=== PATIENT | male | born 1965 | race Caucasian/White ===

== ENCOUNTER → 2019-12-06 11:46 | Outpatient (BNVA) | payer MEDICARE, MEDICAID, SELFPAY | PROVIDERS: Family Provider Nurse Practitioner; PCP Nurse Practitioner; Visit Provider Nurse Practitioner Family | DX: A49.9 Bacterial infection, unspecified (principal); N39.0 Urinary tract infection, site not specified | CPT/HCPCS: 80053; 81001; 87077; 87086; 87186 ==

== ENCOUNTER → 2019-12-28 11:56 | Outpatient (BNVA) | payer MEDICARE, MEDICAID, SELFPAY | PROVIDERS: Family Provider Nurse Practitioner; PCP Nurse Practitioner; Visit Provider Nurse Practitioner Family | DX: N39.0 Urinary tract infection, site not specified (principal) | CPT/HCPCS: 80053; 80061; 81003; 82306; 82607; 83036; 83735; 84443; 85025 ==

== ENCOUNTER → 2020-05-10 11:00 | Outpatient (BNVA) | payer MEDICARE, MEDICAID, SELFPAY | PROVIDERS: Family Provider Nurse Practitioner; PCP Nurse Practitioner Family; Visit Provider Nurse Practitioner Family | DX: N39.0 Urinary tract infection, site not specified (principal); R31.9 Hematuria, unspecified | CPT/HCPCS: 80053; 81003; 87077; 87086; 87186 ==

== ENCOUNTER → 2020-05-31 11:40 | Outpatient (BNVA) | payer MEDICARE, MEDICAID, SELFPAY | PROVIDERS: Family Provider Nurse Practitioner; PCP Nurse Practitioner Family | DX: N39.0 Urinary tract infection, site not specified (principal); R31.9 Hematuria, unspecified | CPT/HCPCS: 80053; 81003; 87077; 87086; 87184; 87186 ==

== ENCOUNTER → 2020-06-29 11:49 | Outpatient (BNVA) | payer MEDICARE, MEDICAID, SELFPAY | PROVIDERS: Family Provider Nurse Practitioner; PCP Nurse Practitioner Family; Visit Provider Nurse Practitioner Family | DX: E34.9 Endocrine disorder, unspecified (principal); G62.9 Polyneuropathy, unspecified | CPT/HCPCS: 84402; 84403 ==

== ENCOUNTER 2020-07-12 06:00 | Outpatient (RCR) | payer MEDICARE, MEDICAID, SELFPAY | END 2020-08-06 23:59 | disposition home or self-care (01) | LOC: WPT 06:00 | PROVIDERS: Family Provider Nurse Practitioner; PCP Family Medicine; Referring Provider Family Medicine; Visit Provider Family Medicine | DX: M54.12 Radiculopathy, cervical region (principal); M75.102 Unspecified rotator cuff tear or rupture of left shoulder, not specified as traumatic | CPT/HCPCS: 97110; 97112; 97161 ==

== ENCOUNTER → 2020-07-16 10:17 | Outpatient (BNVA) | payer MEDICARE, MEDICAID, SELFPAY | PROVIDERS: Family Provider Nurse Practitioner; PCP Family Medicine; Referring Provider Family Medicine; Visit Provider Anesthesiology Pain Medicine | DX: G82.20 Paraplegia, unspecified (principal); M54.12 Radiculopathy, cervical region; M19.019 Primary osteoarthritis, unspecified shoulder; M75.102 Unspecified rotator cuff tear or rupture of left shoulder, not specified as traumatic; Z79.891 Long term (current) use of opiate analgesic | CPT/HCPCS: 99204 ==

== ENCOUNTER 2020-08-07 06:00 | Outpatient (RCR) | payer MEDICARE, MEDICAID, SELFPAY | END 2020-09-06 23:59 | disposition home or self-care (01) | LOC: WPT 06:00 | PROVIDERS: PCP Family Medicine; Referring Provider Family Medicine; Visit Provider Family Medicine | DX: M54.12 Radiculopathy, cervical region (principal); M75.102 Unspecified rotator cuff tear or rupture of left shoulder, not specified as traumatic | CPT/HCPCS: 97110 ==

== ENCOUNTER 2020-08-08 13:01 | Outpatient (CLI) | payer MEDICARE, MEDICAID, SELFPAY ==
--- NOTE | 2020-08-08 13:18 | XR_ITS ---
WS: [id number] Lateral views of cervical spine in the flexion, extension and neutral positions. 08/08/2020 Clinical Data: M54.12 - Radiculopathy, cervical region Comparison: None. Findings: Degenerative disc narrowing is present at C3-C4 and C5-C6. 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 The spinous process at C4 may be displaced from an old fracture or a congenital abnormality. No preverte bral soft tissue swelling is noted. No compression fractures are seen. On flexion and extension there is no subluxation. However on flexion there is limitation of motion because of the C2-C3 fusion. XR/XR cervical spine fl/ex [id number] Impression: 1. Limitation of motion on flexion. 2. Negative for subluxation on flexion or extension. 3. 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 4. Degenerative disc narrowing at C3-C4 and C6 5-C6..
--- NOTE | 2020-08-08 13:18 | XR_ITS ---
WS: [id number] Left shoulder, 2 views, 08/08/2020 Clinical Data: M19.019 - Primary osteoarthritis, unspecified shoulder Comparison: None. Findings: No fractures or dislocations are seen. The AC joint is normal. The adjacent left clavicle, left scapu la and ribs are normal. The soft tissues are unremarkable. XR/XR shoulder LT min 2V* [id number] Impression: Negative left shoulder.
== END 2020-08-08 13:02 | disposition home or self-care (01) ==
LOC: RADWPI 13:06
PROVIDERS: PCP Family Medicine; Visit Provider Anesthesiology Pain Medicine
DX: M54.12 Radiculopathy, cervical region (principal); M43.22 Fusion of spine, cervical region; M19.012 Primary osteoarthritis, left shoulder
CPT/HCPCS: 72040; 73030

== ENCOUNTER → 2020-08-16 10:14 | Outpatient (BNVA) | payer MEDICARE, MEDICAID, SELFPAY | PROVIDERS: Family Provider Nurse Practitioner; PCP Family Medicine; Visit Provider Anesthesiology Pain Medicine | DX: M54.2 Cervicalgia (principal); M75.102 Unspecified rotator cuff tear or rupture of left shoulder, not specified as traumatic; G82.20 Paraplegia, unspecified; M51.17 Intervertebral disc disorders with radiculopathy, lumbosacral region | CPT/HCPCS: 99214 ==

== ENCOUNTER → 2020-08-28 09:40 | Outpatient (BNVA) | payer MEDICARE, MEDICAID, SELFPAY | PROVIDERS: Family Provider Nurse Practitioner; PCP Family Medicine; Visit Provider Nurse Practitioner Family | DX: N39.0 Urinary tract infection, site not specified (principal); R31.9 Hematuria, unspecified | CPT/HCPCS: 81003; 87086 ==

== ENCOUNTER 2020-08-29 09:06 | Outpatient (CLI) | payer MEDICARE, MEDICAID, SELFPAY ==
--- NOTE | 2020-08-29 09:10 | MR_ITS ---
WS: [id number] MRI CERVICAL SPINE without contrast. HISTORY: M54.12 - Radiculopathy, cervical region prior history of trauma. COMPARISON: None available. Severe degenerative changes throughout the cervical spine. 2 to 3 mm retrolisthesis of C3 and C4. C7 anterolisthesis by 4 mm. No marrow edema or acute fractures are identified. Severe disc space narrowi ng and desiccation at C4-5. Otherwise moderate degenerative disc disease. Significant hypertrophic os teophyte formation at bilaterally. There is signal abnormality within the cervical cord. There are cystic changes in the cervical cord a t the C7 and T1 levels. The largest at T1 extends over a length of 12 mm. This may be from prior trau ma. There is not a significant stenosis at this level. There does appear to be mild atrophy of the co rd. Demyelinating plaque also may be within the differential. No prior studies for comparison. Near complete ankylosis involving the C2 and C3 vertebral bodies. On the prior radiograph there was f usion of the facet joints. C2-C3: Small disc space due to fusion. C3-C4: Marked osteophytic ridging with annular disc bulging. Mild contact on the ventral thecal sac w ith mild central stenosis. Moderate RIGHT foraminal stenosis due to disc osteophyte. C4-C5: Diffuse annular disc bulge. Mild central and bilateral foraminal stenosis. C5-C6: Diffuse annular disc bulging with mild bilateral foraminal stenosis due to osteophytes and dis c disease. C6-C7: Mild annular disc bulge and osteophytosis. Mild central and RIGHT foraminal narrowing. C7-T1: No significant stenosis. Paraspinal soft tissue are normal. MR/MR cervical spin wo con* [id number] IMPRESSION: 1. Severe spondylitic changes in the cervical spine. 2. Partial fusion of the C2-C3 vertebral bodies in the facet joints. 3. Moderate RIGHT foraminal stenosis and mild central stenosis at C3-4 due to disc osteophyte disease. 4. Mild central and bilateral foraminal stenosis at C4-5. 5. Cystic degeneration in the cervical cord at the C7-T1 levels. There is also mild atrophy of the cord at this level. Patient did provide a history of prior cervical spine injury. This may be cystic degeneration due to myelomalacia and cord trauma. Not likely due to stenosis as there is not significant stenosis a t this level. Demyelinating lesions also within the differential.
== END 2020-08-29 09:07 | disposition home or self-care (01) ==
LOC: RADSHAW 09:09
PROVIDERS: PCP Family Medicine; Visit Provider Anesthesiology Pain Medicine
DX: M54.12 Radiculopathy, cervical region (principal); M43.22 Fusion of spine, cervical region; M48.02 Spinal stenosis, cervical region; M25.78 Osteophyte, vertebrae
CPT/HCPCS: 72141

== ENCOUNTER → 2020-09-12 11:13 | Outpatient (BNVA) | payer MEDICARE, MEDICAID, SELFPAY | PROVIDERS: PCP Family Medicine; Visit Provider Nurse Practitioner Family | DX: N39.0 Urinary tract infection, site not specified (principal) | CPT/HCPCS: 81003; 87077; 87086; 87184 ==

== ENCOUNTER → 2020-10-02 00:01 | Outpatient (BNVA) | payer MEDICARE, MEDICAID, SELFPAY | PROVIDERS: PCP Family Medicine; Visit Provider Nurse Practitioner Family | DX: N39.0 Urinary tract infection, site not specified (principal) | CPT/HCPCS: 81003; 87077; 87086; 87184 ==

== ENCOUNTER → 2020-12-13 10:55 | Outpatient (BNVA) | payer MEDICARE, MEDICAID, SELFPAY | PROVIDERS: PCP Family Medicine; Visit Provider Nurse Practitioner Family | DX: E34.9 Endocrine disorder, unspecified (principal) | CPT/HCPCS: 84402; 84403; 85025 ==

== ENCOUNTER 2021-03-25 11:59 | Outpatient (CLI) | payer MEDICARE, MEDICAID, SELFPAY | END 2021-03-25 12:00 | disposition home or self-care (01) | LOC: LAB 05-28 12:43 | PROVIDERS: PCP Nurse Practitioner Family; Visit Provider Nurse Practitioner Family | DX: N39.0 Urinary tract infection, site not specified (principal); R31.9 Hematuria, unspecified | CPT/HCPCS: 81003; 87077; 87086; 87184 ==

== ENCOUNTER 2021-04-10 14:20 | Outpatient (CLI) | payer MEDICARE, MEDICAID, SELFPAY ==
--- NOTE | 2021-04-10 14:23 | MR_ITS ---
WS: [id number] MRI LEFT SHOULDER HISTORY: M75.102 - Unspecified rotator cuff tear or rupture COMPARISON: Shoulder radiograph 08/08/2020 TECHNIQUE: Multiplanar sequences of the shoulder joint are submitted. Moderate AC joint hypertrophy with encroachment upon the supraspinatus muscle and tendon. There is in crease fluid signal along the AC ligament. Bone and soft tissue hypertrophy and thickening of the cap fabi. Moderate amount of increased fluid in subacromial and subdeltoid bursa. Humeral head is high ri ding abutting the undersurface of the distal acromion. No os acromion. Small caliber but intact bicep s tendon at the bicipital groove. Complete tear with retraction of the supraspinatus and infraspinatus tendons. Tendons are retracted t o the medial humeral head. There is a large amount of fluid extending along the infraspinatus tendon. There is also edema within the infraspinatus and supraspinatus muscles. Moderate atrophy of the supr aspinatus and infraspinatus muscles. Subscapularis recess distention with fluid. Tendinopathy in the subscapularis tendon but the tendon is intact. Narrowing of the glenohumeral joint. Intrasubstance degeneration involving the labrum. Partial tear a long the superior labrum. No full-thickness tear of the labrum. MR/MR shoulder LT wo con* [id number] IMPRESSION: 1. Complete tears with retraction to the medial humeral head of the infraspina tus and supraspinatus tendons with muscle edema and atrophy. 2. High riding humeral head abuts the undersurface of the acromion. 3. Moderate AC joint osteoarthritic changes with mild synovitis. 4. Increase fluid in subacromial and subdeltoid bursa and subscapularis recess . 5. Partial tear superior labrum. 6. Moderate subscapularis tendinopathy.
== END 2021-04-10 14:21 | disposition home or self-care (01) ==
LOC: RADSHAW 14:22
PROVIDERS: PCP Nurse Practitioner Family; Visit Provider Nurse Practitioner Family
DX: M75.122 Complete rotator cuff tear or rupture of left shoulder, not specified as traumatic (principal); M65.9 Synovitis and tenosynovitis, unspecified
CPT/HCPCS: 73221; 81003; 87077; 87086; 87184

== ENCOUNTER → 2021-05-27 11:47 | Outpatient (BNVA) | payer MEDICARE, MEDICAID, SELFPAY | PROVIDERS: PCP Nurse Practitioner Family; Visit Provider Nurse Practitioner Family | DX: N39.0 Urinary tract infection, site not specified (principal); R31.9 Hematuria, unspecified | CPT/HCPCS: 81003; 87077; 87086; 87184 ==

== ENCOUNTER → 2021-06-11 11:00 | Outpatient (BNVA) | payer MEDICARE, MEDICAID, SELFPAY | PROVIDERS: PCP Nurse Practitioner Family; Visit Provider Nurse Practitioner Family | DX: N39.0 Urinary tract infection, site not specified (principal) | CPT/HCPCS: 81003; 87077; 87086; 87184 ==

== ENCOUNTER → 2021-08-12 11:33 | Outpatient (BNVA) | payer MEDICARE, MEDICAID, SELFPAY | PROVIDERS: PCP Nurse Practitioner Family; Visit Provider Nurse Practitioner Family | DX: N39.0 Urinary tract infection, site not specified (principal); T83.510S Infection and inflammatory reaction due to cystostomy catheter, sequela | CPT/HCPCS: 81003; 87077; 87086; 87184 ==

== ENCOUNTER → 2021-08-22 10:19 | Outpatient (BNVA) | payer MEDICARE, MEDICAID, SELFPAY | PROVIDERS: PCP Nurse Practitioner Family; Visit Provider Nurse Practitioner Family | DX: E55.9 Vitamin D deficiency, unspecified (principal); E34.9 Endocrine disorder, unspecified; I10 Essential (primary) hypertension; E78.2 Mixed hyperlipidemia; N39.0 Urinary tract infection, site not specified; Z79.899 Other long term (current) drug therapy | CPT/HCPCS: 80053; 80061; 82306; 83036; 84402; 84403; 84443; 85025; G0103 ==

== ENCOUNTER → 2021-08-26 09:46 | Outpatient (BNVA) | payer MEDICARE, MEDICAID, SELFPAY | PROVIDERS: PCP Nurse Practitioner Family; Visit Provider Nurse Practitioner Family | DX: N39.0 Urinary tract infection, site not specified (principal) | CPT/HCPCS: 81003; 87077; 87086; 87184 ==

== ENCOUNTER → 2021-09-10 11:56 | Outpatient (BNVA) | payer MEDICARE, MEDICAID, SELFPAY | PROVIDERS: PCP Nurse Practitioner Family; Visit Provider Nurse Practitioner Family | DX: T83.510S Infection and inflammatory reaction due to cystostomy catheter, sequela (principal); N39.0 Urinary tract infection, site not specified | CPT/HCPCS: 81003 ==

== ENCOUNTER → 2021-12-24 11:27 | Outpatient (BNVA) | payer MEDICARE, MEDICAID, SELFPAY | PROVIDERS: PCP Nurse Practitioner Family; Visit Provider Nurse Practitioner | DX: R20.2 Paresthesia of skin (principal); N39.0 Urinary tract infection, site not specified; T83.511A Infection and inflammatory reaction due to indwelling urethral catheter, initial encounter | CPT/HCPCS: 81000 ==

== ENCOUNTER → 2022-01-30 15:55 | Outpatient (BNVA) | payer MEDICARE, MEDICAID, SELFPAY | PROVIDERS: PCP Nurse Practitioner Family; Visit Provider Nurse Practitioner | DX: T83.511A Infection and inflammatory reaction due to indwelling urethral catheter, initial encounter (principal); N39.0 Urinary tract infection, site not specified | CPT/HCPCS: 81000 ==

== ENCOUNTER → 2022-02-14 10:38 | Outpatient (BNVA) | payer MEDICARE, MEDICAID, SELFPAY | PROVIDERS: PCP Nurse Practitioner Family; Visit Provider Nurse Practitioner | DX: N39.0 Urinary tract infection, site not specified (principal) | CPT/HCPCS: 81000 ==

== ENCOUNTER → 2022-04-25 14:24 | Outpatient (BNVA) | payer MEDICARE, MEDICAID, SELFPAY | PROVIDERS: PCP Nurse Practitioner Family; Visit Provider Nurse Practitioner | DX: N39.0 Urinary tract infection, site not specified (principal) | CPT/HCPCS: 81000 ==

== ENCOUNTER 2022-07-29 14:07 | Outpatient (RCR) | payer MEDICARE, MEDICAID, SELFPAY | END 2022-08-06 23:59 | disposition home or self-care (01) | LOC: WPT 14:07 | PROVIDERS: PCP Nurse Practitioner Family; Visit Provider Family Medicine | DX: S46.011D Strain of muscle(s) and tendon(s) of the rotator cuff of right shoulder, subsequent encounter (principal); S46.012D Strain of muscle(s) and tendon(s) of the rotator cuff of left shoulder, subsequent encounter; X58.XXXA Exposure to other specified factors, initial encounter; G82.20 Paraplegia, unspecified | CPT/HCPCS: 97110; 97112; 97163; 97530 ==

== ENCOUNTER 2022-08-07 06:00 | Outpatient (RCR) | payer MEDICARE, MEDICAID, SELFPAY | END 2022-09-06 23:59 | disposition home or self-care (01) | LOC: WPT 06:00 | PROVIDERS: PCP Nurse Practitioner Family; Visit Provider Family Medicine | DX: G82.20 Paraplegia, unspecified (principal); S46.011D Strain of muscle(s) and tendon(s) of the rotator cuff of right shoulder, subsequent encounter; X58.XXXD Exposure to other specified factors, subsequent encounter; Z99.3 Dependence on wheelchair | CPT/HCPCS: 97110; 97112; 97530 ==

== ENCOUNTER 2022-08-26 10:15 | Emergency (ER) | payer MEDICARE, MEDICAID, SELFPAY ==
[2022-08-26 10:36] VITALS: BP 130/61; PULSE 64; RESP 14; TEMP 36.6; O2SAT 100
--- NOTE | 2022-08-26 10:39 | ED_ITS ---
HPI - Wound/Laceration General: Chief Complaint: Wound/Laceration Stated Complaint: wound on right hip Time Seen by Provider: 08/26/22 10:27 Source: patient Mode of arrival: ambulatory History of Present Illness: 57-year-old male who presents emergency room with complaint of ulceration on his right buttock. Its at the skin fold of the right gluteus. It has been draining a little bit. He has a previous spot spinal cord injury that is left him paraplegic. Denies any fever sweats or chills. Onset (ago): week(s) Location: other (Right buttock) Place: home Associated symptoms: Denies chills, fever(s), foreign body sensation, inability to move, nausea, numbness, pain, syncope or vomiting Treatments prior to arrival: bandage Review of Systems Const: Denies: fever(s) or chills ENMT: Denies: throat pain, ear or mastoid pain, nasal discharge or nasal congestion Card: Denies: chest pain, palpitations, irregular heart rhythm or syncope Resp: Denies: dyspnea, productive cough or non-productive cough GI: Denies: abdominal pain, nausea or vomiting : Denies: flank pain, dysuria, urinary frequency or urinary urgency Skin/Breast: Denies: rash or pruritus PFSH ED PFSH: Medical History Autonomic dysfunction Cardiac arrhythmia DDD (degenerative disc disease), cervical Essential hypertension H/O spinal cord injury Hyperlipidemia Hypotension Hypotestosteronemia Insomnia Medication management Neurogenic bladder Neuropathy Osteoporosis Paraplegia at T4 level Positive colorectal cancer screening using Cologuard test Recurrent UTI Family History Other Cancer Social History Smoking and tobacco status: never smoked Second hand smoke exposure: No Alcohol intake: never Lives independently: Yes Marital status: Single Current occupational status: disabled 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 History of recent travel: No Physical Exam Const: COMMON NORMALS: no acute distress GENERAL APPEARANCE: cooperative and comfortable ORIENTATION/CONSCIOUSNESS: Yes awake, Yes oriented to person, Yes oriented to place and Yes oriented to time HENMT: COMMON NORMALS: normocephalic, atraumatic and hearing grossly normal bilaterally HEAD & SCALP: normocephalic and atraumatic Resp: COMMON NORMALS: normal respiratory effort, No retractions, No use of accessory muscles and clear to auscultation bilaterally AUSCULTATION: clear to auscultation bilaterally Cardio: COMMON NORMALS: regular rate, regular rhythm and No murmurs present (Cardio) RATE: regular rate RHYTHM: regular rhythm GI: COMMON NORMALS: Soft to palpation and No hepatosplenomegaly present AUSCULTATION: Yes normoactive bowel sounds PALPATION: Yes Soft to palpation, No Tenderness to palpation present (GI), No Guarding due to palpation present (GI) and Yes No hepatosplenomegaly present Back/Pelvis: OTHER: Tunneled pressure ulcer in the right buttock at the gluteal fold. No active drainage minimal erythema. Wet mucous ulcer at its base. Approximately an 2 inches at the opening. Tunnels inferiorly. Wound not probed no exposed bone visualized. Neuro: SENSORIUM/ORIENTATION: Yes oriented to person, Yes oriented to place and Yes oriented to time Skin: COMMON NORMALS: no rashes or lesions noted GENERAL SKIN EXAM: no rashes or lesions noted Course Vital Signs: Vital signs: Vital Signs Temperature 97.9 F 08/26/22 10:36 Pulse Rate 54 L 08/26/22 11:35 Respiratory Rate 14 08/26/22 10:36 Blood Pressure 126/73 08/26/22 11:35 Pulse Oximetry 99 08/26/22 11:35 Oxygen Delivery Me thod 08/26/22 11:35 MDM - Wound/Laceration Medical Decision Making Tunnel decub ulcer approximately 2 inches in diameter. No signs of infection or drainage at this time. Would recommend that he follow-up with the wound care clinic we will do wet-to-dry at bandages until he is seen there. Discussed with patient expressed understanding. Medical Records I reviewed the patient's medical records. Lab Data I reviewed the patient's lab results. 08/26/22 11:04 08/26/22 11:04 Laboratory Results WBC 12.0 10^3/uL (4.0-10.0) H 08/26/22 11:04 RBC 3.84 10^6/uL (4.1-5.3) L 08/26/22 11:04 Hgb 12.1 g/dL (11.7-16.6) 08/26/22 11:04 Hct 36.7 % (42.0-52.0) L 08/26/22 11:04 MCV 95.6 fl (80-94) H 08/26/22 11:04 MCH 31.5 pg (28.0-34.0) 08/26/22 11:04 MCHC 33.0 g/dL (30.0-36.0) 08/26/22 11:04 RDW 13.0 % (12.1-15.1) 08/26/22 11:04 Plt Count 266 10^3/cmm (130-400) 08/26/22 11:04 MPV 8.7 fL (7.4-10.4) 08/26/22 11:04 Neut % (Auto) 80.0 % 08/26/22 11:04 Lymph % (Auto) 7.5 % 08/26/22 11:04 [place] % (Auto) 10.6 % 08/26/22 11:04 Eos % (Auto) 0.8 % 08/26/22 11:04 Baso % (Auto) 0.3 % 08/26/22 11:04 Neut # (Auto) 9.61 10^3/uL (1.8-7.7) H 08/26/22 11:04 Lymph # (Auto) 0.9 10^3/uL (0.8-4.8) 08/26/22 11:04 [place] # (Auto) 1.3 10^3/uL (0.2-0.9) H 08/26/22 11:04 Eos # (Auto) 0.1 10^3/uL (0.0-0.8) 08/26/22 11:04 Baso # (Auto) 0.0 10^3/uL (0.0-0.1) 08/26/22 11:04 Nucleated RBC % (auto) 0 % 08/26/22 11:04 Nucleated RBCs # 0.0 /100WBC 08/26/22 11:04 Sodium 139 mmol/L (136-145) 08/26/22 11:04 Potassium 3.6 mmol/L (3.5-5.1) 08/26/22 11:04 Chloride 103 mmol/L (98-107) 08/26/22 11:04 Carbon Dioxide 27 mmol/L (22-29) 08/26/22 11:04 Anion Gap 12.6 (5-19) 08/26/22 11:04 BUN 10 mg/dL (6-20) 08/26/22 11:04 Creatinine 0.6 mg/dL (0.7-1.2) L 08/26/22 11:04 GFR Calculation 139.4 mL/min (90-130) H 08/26/22 11:04 Glucose 101 mg/dL (65-115) 08/26/22 11:04 Calculated Osmolality 287 mOsm/kg (285-295) 08/26/22 11:04 Calcium 8.8 mg/dL (8.5-10.5) 08/26/22 11:04 Total Bilirubin 0.4 mg/dL (0.15-1.2) 08/26/22 11:04 AST 18 U/L (0-40) 08/26/22 11:04 ALT 15 U/L (0-41) 08/26/22 11:04 Alkaline Phosphatase 74 U/L (40-130) 08/26/22 11:04 Total Protein 6.4 g/dL (6.6-8.7) L 08/26/22 11:04 Albumin 3.2 g/dL (3.5-5.2) L 08/26/22 11:04 Globulin 3.2 g/dL (1.3-4.6) 08/26/22 11:04 Discharge Plan Discharge Patient Disposition: Home Clinical Impression: Decubitus ulcer of buttock, stage 3 Condition: Stable Prescriptions: No Action Maximum Daily Multivitamin 18-0.4 mg tablet 1 tab PO DAILY omega [id number]-fish oil 1,000 mg (120 mg-180 mg) capsule 1 cap PO DAILY ergocalciferol (vitamin D2) 10 mcg (400 unit) tablet 400 unit PO DAILY testosterone cypionate [Depo-Testosterone] 200 mg/mL oil 100 mg IM .every 2 weeks 90 Days Qty: 3 2RF gabapentin 300 mg capsule 300 mg PO Q8H 90 Days Qty: 270 2RF (DME) ELECTRIC WHEELCHAIR See Rx Instructions .Route .MEDSUPPLY Qty: 1 0RF Rx Instructions: As directed (DME) Wheelchair repair See Rx Instructions .Route .MEDSUPPLY Qty: 1 0RF Rx Instructions: As directed Wheelchair repair as directed. fludrocortisone 0.1 mg tablet See Rx Instructions .ROUTE .COMPLEX Qty: 60 2RF Dose Instruction: TAKE ONE TABLET BY MOUTH TWICE DAILY; ((PATIENT NEEDS TO BE SEEN FOR REFILLS, BEEN A YEAR)) Rx Instructions: TAKE ONE TABLET BY MOUTH TWICE DAILY; ((PATIENT NEEDS TO BE SEEN FOR REFILLS, BEEN A YEAR)) diclofenac sodium 25 mg Tablet,Delayed Release (Dr/Ec) 25 mg PO BID alendronate 70 mg tablet 70 mg PO Q7D Rx Instructions: ON FRIDAYS amitriptyline 50 mg tablet 50 mg PO BEDTIME baclofen 20 mg tablet 20 mg PO QID Discharge Orders: Discharge ED (Routine); Ordered 08/26/22 Ordered By: Aaron Lorenzo Referrals: Tyler Castle [Primary Care Provider] - Patient Instructions: Opioid Safety, Pain Management Activity Restrictions/Additional Instructions: You were seen today for decubitus ulcer in the right buttock. There is no active infection at this time. Recommend wet-to-dry dressings and Case management make arrangements for you to follow-up with wound care clinic. 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
[2022-08-26 11:15] LABS: Basophils % 0.3 %; Eosinophils # 0.1 10^3/uL (0.0-0.8); Eosinophils % 0.8 %; Hematocrit 36.7 % (42.0-52.0); Hemoglobin 12.1 g/dL (11.7-16.6); Lymphocytes # 0.9 10^3/uL (0.8-4.8); Lymphocytes % 7.5 %; Mean Corpuscular Hemoglobin 31.5 pg (28.0-34.0); Mean Corpuscular Volume 95.6 fl (80-94); Mean Platelet Volume 8.7 fL (7.4-10.4); Monocytes # 1.3 10^3/uL (0.2-0.9); Monocytes % 10.6 %; Neutrophils # 9.61 10^3/uL (1.8-7.7); Nucleated Red Blood Cells % 0 %; Platelet Count 266 10^3/cmm (130-400); Red Blood Count 3.84 10^6/uL (4.1-5.3)
[2022-08-26 11:35] VITALS: BP 126/73; PULSE 54; O2SAT 99
[2022-08-26 11:35] LABS: Alanine Aminotransferase 15 U/L (0-41); Albumin Level 3.2 g/dL (3.5-5.2); Alkaline Phosphatase 74 U/L (40-130); Anion Gap 12.6 (5-19); Aspartate Amino Transferase 18 U/L (0-40); Blood Urea Nitrogen 10 mg/dL (6-20); Calcium 8.8 mg/dL (8.5-10.5); Carbon Dioxide 27 mmol/L (22-29); Chloride 103 mmol/L (98-107); Globulin 3.2 g/dL (1.3-4.6); Glomerular Filtration Rate 139.4 mL/min (90-130); Glucose 101 mg/dL (65-115); Osmolality Calculated 287 mOsm/kg (285-295); Potassium 3.6 mmol/L (3.5-5.1); Sodium 139 mmol/L (136-145); Total Bilirubin 0.4 mg/dL (0.15-1.2); Total Protein 6.4 g/dL (6.6-8.7)
--- NOTE | 2022-08-27 09:48 | DCPLANNER ---
Addendum entered by Makeda Bell 09/12/22 11:23: Patient had a follow up appointment scheduled with Wound Care - patient did attend appointment. Addendum entered by Makeda Bell 08/28/22 09:44: Patient has a follow up appointment scheduled with Wound Care for Thursday, September 03, 2022 at 10:[address] Pettit at Wound Care. Clinic will call patient with appointment information. Original Note: transition program manager had message to schedule a follow up appointment for patient with wound care. transition program manager sent patients information to the front office staff at wound care. Patients information will be printed and reviewed. Clinic will call patient with appointment information.
== END 2022-08-26 12:24 | disposition home or self-care (01) ==
PROVIDERS: Emergency Provider Family Medicine; PCP Family Medicine
DX: L89.313 Pressure ulcer of right buttock, stage 3 (principal)
CPT/HCPCS: 36415; 80053; 85025; 99283

== ENCOUNTER → 2022-09-03 09:44 | Outpatient (BNVA) | payer MEDICARE, MEDICAID, SELFPAY | PROVIDERS: PCP Family Medicine; Visit Provider Surgery | DX: I96 Gangrene, not elsewhere classified (principal); L02.31 Cutaneous abscess of buttock | CPT/HCPCS: 11042; 99213 ==

== ENCOUNTER → 2022-09-10 09:04 | Outpatient (BNVA) | payer MEDICARE, MEDICAID, SELFPAY | PROVIDERS: PCP Family Medicine; Visit Provider Thoracic Surgery (Cardiothoracic Vascular Surgery) | DX: L89.314 Pressure ulcer of right buttock, stage 4 (principal) | CPT/HCPCS: 11043; A6446 ==

== ENCOUNTER → 2022-09-17 10:30 | Outpatient (BNVA) | payer MEDICARE, MEDICAID, SELFPAY | PROVIDERS: PCP Family Medicine; Visit Provider Thoracic Surgery (Cardiothoracic Vascular Surgery) | DX: I96 Gangrene, not elsewhere classified (principal); L89.314 Pressure ulcer of right buttock, stage 4 | CPT/HCPCS: 11043; A6446 ==

== ENCOUNTER 2022-09-22 15:32 | Outpatient (CLI) | payer MEDICARE, MEDICAID, SELFPAY ==
--- NOTE | 2022-09-22 16:00 | CT_ITS ---
WS: [id number] CT PELVIS WITH CONTRAST. HISTORY: non-healing ulcer; sp muscle flap with tunneling TECHNIQUE: Contiguous imaging is performed of the pelvis with contrast. Coronal and sagittal reformat s are reviewed. All CT scans at [facility] use at least one of these dose optimization techni ques: automated exposure control; mA and/or kV adjustment per patient size (includes targeted exams w here dose is matched to clinical indication); or iterative reconstruction. Contrast: Omnipaque 350, 95 mL. DLP: 481.66 mGy.cm COMPARISON: None available. Soft tissue tract with enhancement and central air involving the posterior RIGHT pelvis extending to the RIGHT ischial tuberosity. The soft tissue tract measures 8.3 x 3.9 x 9.7 cm with wall thickening and enhancement. There is air along the central tract which also extends to the ischial tuberosity. T here is mild sclerosis in the RIGHT ischial tuberosity and mild bony hypertrophy which can be related to prior osteomyelitis with healing. There is mild thinning of the cortex. An early, recurrent osteo myelitis is not excluded. The tract does extend to abut a long portion of the tuberosity with encasem ent. Focal area of low attenuation along the tract may be packing material. Soft tissue inflammation exten ds to the RIGHT perineum. No additional tracts are identified. RIGHT renal cyst 1.2 cm. No free fluid in the pelvis. Suprapubic catheter remains in good position. CT/CT pelvis w con* [id number] IMPRESSION: 1. Significant soft tissue ulceration with tract and enhancement in the financial controller ior RIGHT pelvis measures 8.3 x 3.9 x 9.7 cm. 2. Soft tissue tract extends to encase the RIGHT ischial tuberosity. Mild thin fiona of the cortex. Acute osteomyelitis not excluded but suspicious due to the significant contact by the enhancing tract. There is evidence for prior osteomy elitis with healing. 3. Suprapubic catheter in good position. 4. Mild inflammation extending to the RIGHT perineum.
[2022-09-22] MEDS: iohexol 350 mg/mL 500 mL Btl (per mL) IV (16:50)
== END 2022-09-22 15:33 | disposition home or self-care (01) ==
LOC: RAD 15:33
PROVIDERS: PCP Family Medicine; Visit Provider Thoracic Surgery (Cardiothoracic Vascular Surgery)
DX: L89.314 Pressure ulcer of right buttock, stage 4 (principal)
CPT/HCPCS: 72193; Q9967

== ENCOUNTER 2023-12-31 16:29 | Outpatient (CLI) | payer MEDICARE, MEDICAID, SELFPAY ==
[2023-12-31 17:17] LABS: Add Urine Microscopic? YES; Bilirubin Urine Neg (Negative); Blood Urine 3+ (Negative); Glucose Urine UA Norm (Normal); Ketones Urine Negative (Negative); Leukocyte Esterase Urine 2+ (Negative); Nitrate Urine Negative (Negative); Protein Urine 1+ (Negative); Urine Appearance Hazy (CLEAR); Urine Color Yellow (Yellow); Urobilinogen Urine Norm (Negative); pH Urine 5 (5-7)
[2023-12-31 17:25] LABS: RBC Urine >100 /hpf (0-2); Squamous Epithelial Cell Urine 0-4 /hpf (0-5); Transitional Epi Cells Urine 0-4 /hpf; WBC Urine 80-100 /hpf (0-5)
[2023-12-31 17:26] LABS: Add Urine Culture? Yes; Bacteria Urine TRACE /hpf
== END 2023-12-31 16:30 | disposition home or self-care (01) ==
LOC: LAB 16:32
PROVIDERS: PCP Family Medicine; Visit Provider Family Medicine
DX: Z01.89 Encounter for other specified special examinations (principal)
CPT/HCPCS: 81001; 87077; 87086; 87186

== ENCOUNTER 2024-02-04 18:11 | Outpatient (CLI) | payer MEDICARE, MEDICAID, SELFPAY ==
[2024-02-04 18:48] LABS: Add Urine Microscopic? YES; Bilirubin Urine Neg (Negative); Blood Urine 2+ (Negative); Glucose Urine UA Norm (Normal); Ketones Urine Negative (Negative); Leukocyte Esterase Urine 2+ (Negative); Nitrate Urine Positive (Negative); Protein Urine Neg (Negative); Urine Appearance Cloudy (CLEAR); Urine Color Yellow (Yellow); Urobilinogen Urine Norm (Negative); pH Urine 6 (5-7)
[2024-02-04 18:55] LABS: Add Urine Culture? Yes; Bacteria Urine 2+ /hpf; RBC Urine 0-4 /hpf (0-2); Squamous Epithelial Cell Urine 0-4 /hpf (0-5); Transitional Epi Cells Urine 0-4 /hpf; WBC Urine 25-40 /hpf (0-5)
== END 2024-02-04 18:12 | disposition home or self-care (01) ==
LOC: LAB 18:18
PROVIDERS: PCP Family Medicine; Visit Provider Family Medicine
DX: Z01.89 Encounter for other specified special examinations (principal)
CPT/HCPCS: 81001; 87077; 87086; 87186

== ENCOUNTER 2024-06-02 15:16 | Outpatient (CLI) | payer MEDICARE, MEDICAID, SELFPAY ==
[2024-06-02 16:08] LABS: Bilirubin Urine Negative (Negative); Blood Urine 3+ (Negative); Glucose Urine UA Negative (Normal); Ketones Urine Negative (Negative); Leukocyte Esterase Urine 3+ (Negative); Nitrate Urine Positive (Negative); Protein Urine 2+ (Negative); Specific Gravity, Urine 1.021 (1.005-1.030); Urine Appearance Cloudy (CLEAR)
[2024-06-02 16:16] LABS: Add Urine Microscopic? YES; Bacteria Urine 3+ /hpf; Hyaline Casts Urine 7.01 /lpf; RBC Urine >100 /hpf (0-2); Squamous Epithelial Cell Urine 0-5 /hpf (0-5); WBC Urine >100 /hpf (0-5)
[2024-06-02 17:01] LABS: Urine Color Red (Yellow)
[2024-06-02 17:04] LABS: Add Urine Culture? No; Triple Phosphate Crystal Urine 25-40 /hpf; UA Slide Review UA Slide Review Perf
== END 2024-06-02 15:17 | disposition home or self-care (01) ==
PROVIDERS: PCP Family Medicine; Visit Provider Family Medicine
DX: R82.91 Other chromoabnormalities of urine (principal); R31.9 Hematuria, unspecified
CPT/HCPCS: 81001; 87086

== ENCOUNTER 2024-06-30 15:41 | Outpatient (CLI) | payer MEDICARE, MEDICAID, SELFPAY ==
[2024-06-30 16:22] LABS: Bacteria Urine 3+ /hpf; Hyaline Casts Urine 2.87 /lpf; RBC Urine 0-2 /hpf (0-2); Squamous Epithelial Cell Urine 0-5 /hpf (0-5)
[2024-06-30 16:31] LABS: Add Urine Microscopic? YES; Bilirubin Urine Negative (Negative); Blood Urine Non-haemolysed trace (Negative); Glucose Urine UA Negative (Normal); Ketones Urine Negative (Negative); Leukocyte Esterase Urine 2+ (Negative); Nitrate Urine Negative (Negative); Protein Urine 1+ (Negative); Specific Gravity, Urine 1.018 (1.005-1.030); Urine Appearance Clear (CLEAR); Urine Color Yellow (Yellow); pH Urine 6.5 (5-7)
== END 2024-06-30 15:42 | disposition home or self-care (01) ==
LOC: LAB 15:45
PROVIDERS: PCP Family Medicine; Visit Provider Family Medicine
DX: R82.90 Unspecified abnormal findings in urine (principal); R82.998 Other abnormal findings in urine
CPT/HCPCS: 81001; 87077; 87086; 87186

== ENCOUNTER 2024-12-15 15:25 | Outpatient (CLI) | payer MEDICARE, MEDICAID, SELFPAY ==
[2024-12-15 15:58] LABS: Bacteria Urine 4+ /hpf; Hyaline Casts Urine 4.52 /lpf; RBC Urine 0-2 /hpf (0-2); WBC Urine 21-50 /hpf (0-5)
[2024-12-15 16:23] LABS: Add Urine Microscopic? YES; Blood Urine Neg (Negative); Glucose Urine UA Norm (Normal); Ketones Urine Negative (Negative); Nitrate Urine Positive (Negative); Protein Urine Trace (Negative); Specific Gravity, Urine 1.005 (1.005-1.030); Urine Appearance Cloudy (CLEAR); Urine Color Yellow (Yellow); pH Urine 7 (5-7)
[2024-12-15 16:24] LABS: Add Urine Culture? No; Bilirubin Urine Neg (Negative); Leukocyte Esterase Urine 2+ (Negative); Urobilinogen Urine Norm (Negative)
== END 2024-12-15 15:26 | disposition home or self-care (01) ==
LOC: LAB 15:30
PROVIDERS: PCP Family Medicine; Visit Provider Family Medicine
DX: Z46.6 Encounter for fitting and adjustment of urinary device (principal); R82.998 Other abnormal findings in urine
CPT/HCPCS: 81001; 87086

== ENCOUNTER 2025-03-14 15:26 | Outpatient (CLI) | payer MEDICAID, SELFPAY ==
[2025-03-14 15:50] LABS: Glucose Urine UA Negative (Normal); Nitrate Urine Positive (Negative); Specific Gravity, Urine 1.007 (1.005-1.030)
[2025-03-14 15:53] LABS: Add Urine Microscopic? YES
[2025-03-14 16:17] LABS: UA Slide Review UA Slide Review Perf
== END 2025-03-14 15:27 | disposition home or self-care (01) ==
LOC: LAB 15:27
PROVIDERS: PCP Family Medicine; Visit Provider Family Medicine
DX: Z01.89 Encounter for other specified special examinations (principal)
CPT/HCPCS: 81001; 87077; 87086; 87186

== ENCOUNTER 2025-04-27 17:08 | Outpatient (CLI) | payer MEDICAID, SELFPAY ==
[2025-04-27 17:22] LABS: Glucose Urine UA Negative (Normal); Nitrate Urine Negative (Negative); Specific Gravity, Urine 1.010 (1.005-1.030)
[2025-04-27 17:27] LABS: Add Urine Microscopic? YES
[2025-04-27 17:47] LABS: UA Slide Review UA Slide Review Perf
== END 2025-04-27 17:09 | disposition home or self-care (01) ==
PROVIDERS: PCP Family Medicine; Visit Provider Family Medicine
DX: Z01.89 Encounter for other specified special examinations (principal)
CPT/HCPCS: 81001; 87086

== ENCOUNTER 2025-06-01 15:53 | Outpatient (CLI) | payer MEDICARE, MEDICAID, SELFPAY ==
[2025-06-01 16:26] LABS: Glucose Urine UA Negative (Normal); Nitrate Urine Negative (Negative); Specific Gravity, Urine 1.018 (1.005-1.030)
[2025-06-01 16:32] LABS: Add Urine Microscopic? YES
[2025-06-01 17:07] LABS: UA Slide Review UA Slide Review Perf
== END 2025-06-01 15:54 | disposition home or self-care (01) ==
PROVIDERS: PCP Family Medicine; Visit Provider Family Medicine
DX: Z43.5 Encounter for attention to cystostomy (principal); Z87.440 Personal history of urinary (tract) infections
CPT/HCPCS: 81001; 87086

== ENCOUNTER 2025-08-10 15:48 | Outpatient (CLI) | payer MEDICARE, MEDICAID, SELFPAY ==
[2025-08-10 16:22] LABS: Glucose Urine UA Negative (Normal); Nitrate Urine Negative (Negative); Specific Gravity, Urine 1.025 (1.005-1.030)
[2025-08-10 16:25] LABS: Add Urine Microscopic? YES; Universal Test for UA Present (0)
[2025-08-10 17:15] LABS: UA Slide Review UA Slide Review Perf
== END 2025-08-10 15:49 | disposition home or self-care (01) ==
LOC: LAB 15:53
PROVIDERS: PCP Family Medicine; Visit Provider Family Medicine
DX: R82.90 Unspecified abnormal findings in urine (principal); Z87.440 Personal history of urinary (tract) infections; Z46.6 Encounter for fitting and adjustment of urinary device
CPT/HCPCS: 81001; 87086